=== PATIENT | male | born 1965 | race Two or more races ===

== ENCOUNTER 2019-03-26 21:04 | Emergency (ER) | payer MEDICAID ==
[~2019-03-26] VITALS: Ht 170.2 cm; Wt 98.9 kg
--- NOTE | 2019-03-26 21:35 | NUR ---
PT BIBWIFE C/O GENERALIZED ITCHING AND REDDNESS. PT ALSO C/O NAUSEA. PT STATES HE WAS EATING CHICKEN TERIYAKI AND SUDDENLY FELT FLUSH X20 MIN AFTER. DENIES ABDOMINAL PAIN, CP, SOB, VOMITTING. SKIN WARM AND INTACT. PT AAOX4. RESPIRATIONS EVEN AND UNLABORED. NO ACUTE DISTRESS NOTED AT THIS TIME. PLACED ON MONITOR, WILL CONTINUE TO MONITOR. WAITING MD PINEDA
[2019-03-26] MEDS ORDERED: diphenhydrAMINE HCL 50 MG/ML VIAL ONE (22:15)
[2019-03-26] MEDS ORDERED: methylPREDNISolone SOD SUCC 125 MG/2ML VIAL ONE (22:16)
[2019-03-26] MEDS ORDERED: methylPREDNISolone SOD SUCC 125 MG/2ML VIAL IV ONE (22:30)
[2019-03-26] MEDS ORDERED: diphenhydrAMINE HCL 50 MG/ML VIAL IV ONE (22:30)
[2019-03-26] MEDS ORDERED: IV NS 0.9% 1,000 ML BAG IV ONE (22:30)
--- NOTE | 2019-03-26 23:55 | NUR ---
Patient discharged to home in stable condition. Written and verbal after care instructions given. Patient verbalizes understanding of instruction.IV removed. Catheter intact and site benign. Pressure and 4x4 applied to site. No bleeding noted.Pt ambulatory with a steady gait. Pt instructed not to drive, pt verbalized understanding. Left with
[2019-03-26 23:56] VITALS: BP 135/78
== END 2019-03-26 23:56 | disposition home or self-care (01) ==
LOC: ER 21:13
DX: T78.2XXA Anaphylactic shock, unspecified, initial encounter (principal); F41.9 Anxiety disorder, unspecified; R19.7 Diarrhea, unspecified
CPT/HCPCS: 96361; 96374; 96375; 99283; J1200; J2930

== ENCOUNTER 2019-05-13 23:47 | Emergency (ER) | payer MEDICAID ==
[~2019-05-13] VITALS: Ht 167.6 cm; Wt 79.8 kg
--- NOTE | 2019-05-14 00:10 | NUR ---
PT AAOX4. BIBS. C/O "HAVING BILAT FOOT PAIN. 02/16 PAIN. -GLF. -INJURY" -SOB AOX4
[2019-05-14] MEDS ORDERED: KETOROLAC TROMETHAMINE INJ 30 MG/ML VIAL ONE ×2 (00:59→01:08)
[2019-05-14] MEDS ORDERED: KETOROLAC TROMETHAMINE INJ 60 MG/2 ML VIAL IM ONE (01:00)
--- NOTE | 2019-05-14 03:18 | NUR ---
Patient discharged to home in stable condition. Written and verbal after care instructions given. Patient verbalizes understanding of instruction and RX. PT ambulatory with a steady gait.
[2019-05-14 03:20] VITALS: BP 155/78
== END 2019-05-14 03:20 | disposition home or self-care (01) ==
LOC: ER 23:48
DX: M79.672 Pain in left foot (principal); M79.671 Pain in right foot
CPT/HCPCS: 73630 ×2; 96372; 99283; J1885

== ENCOUNTER 2019-05-23 01:02 | Emergency (ER) | payer MEDICAID ==
[~2019-05-23] VITALS: Ht 167.6 cm; Wt 99.8 kg
--- NOTE | 2019-05-23 01:30 | NUR ---
Pt BIBSELF FROM HOME C/O GENERALIZED RASHES & HIVES FOR THE PAST 2-3 HOURS. CAUSE IS UNKNOWN. Pt STATES HE HAS NO KNOWN ALLERGIES TO FOOD OR MEDICINE THAT HE IS AWARE OF. Pt STATES HE HAS SEASONAL ALLERGIES. Pt STATED HE HAD SOME CHICKEN AND A SHAKE EARLIER TODAY BEFORE THE RASHES & HIVES STARTED. Pt IS A/OX4, VERBAL, ABLE TO MAKE NEEDS KNOWN. Pt IS IN ROOM WAITING IN ER BED 2. WILL CONTINUE TO MONITOR Pt.
[2019-05-23] MEDS ORDERED: diphenhydrAMINE HCL 50 MG/ML VIAL IM ONE (02:30)
[2019-05-23] MEDS ORDERED: diphenhydrAMINE HCL 50 MG/ML VIAL ONE (02:30)
[2019-05-23] MEDS ORDERED: predniSONE 50 MG TABLET PO ONE (02:30)
[2019-05-23] MEDS ORDERED: predniSONE 20 MG TABLET ONE (02:30)
--- NOTE | 2019-05-23 02:37 | NUR ---
all ordered meds given
--- NOTE | 2019-05-23 02:46 | NUR ---
Patient discharged to home in stable condition. Written and verbal after care instructions given. Instructed patient to not drive home. Patient verbalizes understanding of instruction. No IV access. Patient left facility on foot with steady gait. No s/s of acute distress or sob noted. all meds given. VS stable.
[2019-05-23 02:48] VITALS: BP 138/86
== END 2019-05-23 02:49 | disposition home or self-care (01) ==
LOC: ER 01:04
DX: L50.0 Allergic urticaria (principal)
CPT/HCPCS: 96372; 99283; J1200; J7512

== ENCOUNTER 2019-05-25 04:39 | Emergency (ER) | payer MEDICAID ==
[~2019-05-25] VITALS: Ht 167.6 cm; Wt 99.9 kg
[2019-05-25] MEDS ORDERED: ONDANSETRON HCL/PF 4 MG/2 ML VIAL ONE (05:15)
--- NOTE | 2019-05-25 05:21 | NUR ---
pt came to er c/o upset stomach and diarrhea 2x days. pt states he was here 2 days ago for allergic reaction and believes the discharge medication he received may have caused the upset stomach. aaox4 no sob breathing evenly and unlabored. connected to monitor
--- NOTE | 2019-05-25 05:21 | NUR ---
blood drawn and sent with phlebotomoist.
[2019-05-25 05:28] LABS: BASOPHILS % (AUTO) 0.3 % (0.0-2.0); EOSINOPHILS % (AUTO) 0.2 % (0.0-6.0); HEMATOCRIT 44 % (39-51); HEMOGLOBIN 14.4 g/dL (13.5-17.5); LYMPHOCYTES # (AUTO) 2.2 /CMM (0.8-4.8); LYMPHOCYTES % (AUTO) 14.6 % (20.0-44.0); MEAN CORPUSCULAR HGB CONC 33 g/dl (31.0-36.0); MEAN CORPUSCULAR VOLUME 93 fL (80-96); MONOCYTES % (AUTO) 6.9 % (2.0-12.0); NEUTROPHILS # (AUTO) 11.9 /CMM (1.8-8.9); PLATELET COUNT (AUTO) 245 /CMM (150-450); RED BLOOD CELL COUNT(AUTO) 4.74 MIL/uL (4.5-6.0); WHITE BLOOD COUNT (AUTO) 15.2 K/uL (4.3-11.0)
[2019-05-25] MEDS ORDERED: ONDANSETRON HCL/PF - ER 4 MG/2 ML VIAL IV ONE (05:30)
[2019-05-25] MEDS ORDERED: IV NS 0.9% 1,000 ML BAG IV ONE (05:30)
[2019-05-25 05:35] LABS: APPEARANCE,URINE Clear (CLEAR); BILIRUBIN,URINE Negative (NEGATIVE); BLOOD, URINE Moderate Ery/uL (NEGATIVE); COLOR,URINE Yellow (YELLOW); KETONES,URINE Negative (NEGATIVE); LEUKOCYTE ESTERASE ,URINE Negative (NEGATIVE); NITRITE, URINE Negative (NEGATIVE); PROTEIN,URINE Negative (NEGATIVE); UGLUCOSE Negative (NEGATIVE); UROBILINOGEN,URINE 0.2 EU/dL (0.2)
[2019-05-25 05:42] LABS: CALCIUM, SERUM 8.9 mg/dL (8.5-10.1)
[2019-05-25 05:46] LABS: ALBUMIN 3.8 g/dL (3.4-5.0); BILIRUBIN,DIRECT 0.1 mg/dL (0.0-0.2); BILIRUBIN,TOTAL 0.3 mg/dL (0.2-1.0); TOTAL PROTEIN, SERUM 8.4 g/dL (6.4-8.2)
[2019-05-25 06:12] LABS: BACTERIA,URINE None seen /HPF (None Seen); RBC,URINE 0-2 /HPF (0-2); SQUAMOUS EPITHELIAL CELL,UR None Seen /HPF (None Seen); WBC,URINE 0-2 /HPF (0-3)
[2019-05-25 06:13] LABS: URINE AMORPHOUS URATE Few /HPF (None Seen)
--- NOTE | 2019-05-25 06:56 | NUR ---
Patient states he feels better.
--- NOTE | 2019-05-25 08:00 | NUR ---
IV removed. Catheter intact and site benign. Pressure and 4x4 applied to site. No bleeding noted.Patient discharged to home in stable condition. Written and verbal after care instructions given. Patient verbalizes understanding of instruction.
[2019-05-25 10:02] VITALS: BP 129/76
== END 2019-05-25 08:05 | disposition home or self-care (01) ==
LOC: ER 04:45
DX: R10.9 Unspecified abdominal pain (principal); R11.2 Nausea with vomiting, unspecified; F17.200 Nicotine dependence, unspecified, uncomplicated
CPT/HCPCS: 36415; 74176; 80048; 80076; 81001; 85025; 96361; 96374; 99284; J2405; J7030; 81000-TC